=== PATIENT | male | born 1970 | race Two or more races ===

== ENCOUNTER 2018-10-03 09:46 | Emergency (ER) | payer OTHER ==
[~2018-10-03] VITALS: Ht 180.3 cm; Wt 88.4 kg
--- NOTE | 2018-10-03 10:07 | NUR ---
PT TO ED FOR N/V, LÓPEZ AND GENERALIZED ACHES SINCE THURSDAY. CONNECTED TO MONITORS. 2LNC APPLIED FOR RA SAT 91%. RECOVERED TO 96%. ALL OTHER VSS. NO NEEDS AT THIS TIME. CALL LIGHT WITHIN REACH. PA TO BEDISDE FOR ASSESSMET. AWAITING ORDERS.
[2018-10-03 10:33] LABS: RAPID INFLUENZA A Negative (Negative); RAPID INFLUENZA B Negative (Negative)
[2018-10-03 10:40] VITALS: BP 125/77
--- NOTE | 2018-10-03 10:41 | NUR ---
ALL RESULTS BACK AT THIS TIME. PT RESTING IN ROOM WITH EYES CLOSED. FAMILY AT BEDSIDE. NO NEEDS AT THIS TIME. CALL LIGHT WITHIN REACH.
== END 2018-10-03 11:12 | disposition home or self-care (01) ==
LOC: ED 10:51
DX: J15.9 Unspecified bacterial pneumonia (principal)
CPT/HCPCS: 71046; 87400; 99284